=== PATIENT | female | born 1945 | race Caucasian/White ===

== ENCOUNTER → 2016-07-31 | Outpatient (CLI) | payer OTHER ==
--- NOTE | 2016-07-31 11:32 | MA ---
Bilateral Screening Digital Mammograms with iCAD Clinical Indications: Routine screening mammograms. Technique: Standard digital cephalocaudal and mediolateral oblique projections were obtained. This examination was processed by the iCAD computer-aided detection system. Comparison: December 2010, April 2013, August 2014 Breast Parenchymal Density: B Findings: There are no masses, no suspicious calcifications, and no secondary signs of malignancy. Impression: Negative. BI-RADS 1. Recommendation: Routine screening mammograms in one year. The patients information is entered into a reminder system with a target due date for her next mammog nahun. Negative mammography should not preclude additional workup of a clinically suspicious finding.
== END ==
LOC: FIMAGING 09:40
DX: Z12.31 Encounter for screening mammogram for malignant neoplasm of breast (principal)
CPT/HCPCS: G0202

== ENCOUNTER → 2017-11-07 | Outpatient (CLI) | payer OTHER | LOC: FIMAGING 08:33 | PROVIDERS: ATTEND Family Medicine | DX: Z12.31 Encounter for screening mammogram for malignant neoplasm of breast (principal) ==